=== PATIENT | male | born 1985 | race Caucasian/White ===

== ENCOUNTER 2017-07-20 16:59 | Emergency (ER) | payer OTHER ==
[~2017-07-20] VITALS: Ht 170.2 cm; Wt 61.2 kg
[~2017-07-20 16:59] MED LIST: NOHOMEMEDICATIONS; NORCO 5-325 TA1 EACH PO
[2017-07-20 18:52] LABS: URINE BILIRUBIN NEGATIVE (Negative); URINE BLOOD 3+ (Negative); URINE CLARITY CLOUDY; URINE COLOR YELLOW; URINE GLUCOSE-RANDOM* NEGATIVE (Negative); URINE KETONES NEGATIVE (Negative); URINE LEUKOCYTES 1+ (Negative); URINE NITRITE NEGATIVE (Negative); URINE PROTEIN (DIPSTICK) TRACE (Negative)
[2017-07-20 19:06] LABS: BACTERIA >30 Many /HPF (None Seen); CRYSTALS None Seen /LPF (None Seen); SQUAMOUS None Seen /LPF (0-3); URINE WBC >25 Many /HPF (0-5)
[2017-07-20] MEDS ORDERED: DOXYCYCLINE 10100 MG PO (19:06)
[2017-07-20] MEDS ORDERED: IBUPROFEN 800800 M1 PO (19:06)
[2018-01-09] MEDS ORDERED: ULTRAM 50MG TAB50 MG PO (21:09)
[2018-01-09] MEDS ORDERED: KEFLEX500 M1 PO (21:09)
== END 2017-07-20 18:50 | disposition home or self-care (01) ==
LOC: ER 16:59
PROVIDERS: Nurse Practitioner Family
DX: N45.1 Epididymitis (principal); N39.0 Urinary tract infection, site not specified; F17.210 Nicotine dependence, cigarettes, uncomplicated; Z88.8 Allergy status to other drugs, medicaments and biological substances; Z88.7 Allergy status to serum and vaccine